=== PATIENT | female | born 1965 | race Hispanic/Latino ===

== ENCOUNTER 2017-02-20 18:00 | Emergency (ER) | payer BC ==
[2017-02-20 18:00] VITALS: BMI 25.8
[2017-02-20 18:22] VITALS: BP 138/95; PULSE 89; RESP 16; TEMP 97.1; O2SAT 100
--- NOTE | 2017-02-20 19:28 | ED PDOC ---
Lower Extremity Pain/Injury Time Seen by Provider: 02/20/17 18:30 Chief Complaint (Nursing): Lower Extremity Problem/Injury Chief Complaint (Provider): Right 4th toe pain, ecchymosis History Per: Patient History/Exam Limitations: no limitations Onset/Duration Of Symptoms: Days Current Symptoms Are (Timing): Still Present Severity: Mild Pain Scale Rating Of: 3 Additional Complaint(s): PT states she felt some pain and tingling in the 4th digit this morning. Pt states after work she felt mild pain and when she took off her shoe she noticed the medial seciton of the toe was bruised. Pt denies any recent trauma. Pt states she did do a good cleaning of the house yesterday. Past Medical History Reviewed: Historical Data, Nursing Documentation, Vital Signs Vital Signs: Last Vital Signs Temp 97.1 F L 02/20/17 18:18 Pulse 89 02/20/17 18:18 Resp 16 02/20/17 18:18 BP 138/95 H 02/20/17 18:18 Pulse Ox 100 02/20/17 18:18 - Medical History PMH: Hypothyroidism Denies: Depression - Surgical History Surgical History: No Surg Hx - Family History Family History: States: Unknown Family Hx - Living Arrangements Living Arrangements: With Family - Social History Current smoker - smoking cessation education provided: No Alcohol: None Drugs: Denies - Home Medications Home Medications: Ambulatory Orders Medication Instructions Recorded Azithromycin [Zithromax] 250 mg PO DAILY #6 cap 09/10/13 Levothyroxine Sodium 150 mcg PO DAILY 09/10/13 [Levothyroxine Sodium] - Allergies Allergies/Adverse Reactions: Allergies Allergy/AdvReac Type Severity Reaction Status Date / Time No Known Allergies Allergy Verified 02/20/17 18:18 Review of Systems ROS Statement: Except As Marked, All Systems Reviewed And Found Negative Musculoskeletal: Positive for: Other Skin: Positive for: Bruising (right 4th toe ) Physical Exam - Reviewed Nursing Documentation Reviewed: Yes Vital Signs Reviewed: Yes - Physical Exam Appears: Positive for: Well, Non-toxic, No Acute Distress Head Exam: Positive for: ATRAUMATIC, NORMAL INSPECTION, NORMOCEPHALIC Skin: Positive for: Warm. Negative for: Normal Color ((+) right 4th toe ecchymosis, medial ) Eye Exam: Positive for: Normal appearance ENT: Positive for: Normal ENT Inspection Neck: Positive for: Normal, Painless ROM Respiratory: Negative for: Accessory Muscle Use, Respiratory Distress Extremity: Positive for: Normal ROM, Tenderness (right proximal 4th digit ). Negative for: Deformity, Swelling Neurologic/Psych: Positive for: Alert, Oriented - ECG O2 Sat by Pulse Oximetry: 100 Medical Decision Making Medical Decision Making: Podiatry consult completed. Disposition - Clinical Impression Clinical Impression: Soft tissue injury - Patient ED Disposition Is Patient to be Admitted: No Counseled Patient/Family Regarding: Diagnosis, Need For Followup - Disposition Referrals: Jeremiah Castillo DPM [Staff Provider] - Podiatry Clinic [Outside] Disposition: Routine/Home Disposition Time: 22:42 Condition: GOOD Instructions: Contusion in Adults (ED)
--- NOTE | 2017-02-20 22:06 | CP.PCM.CON ---
History of Present Illness - History of Present Illness History of Present Illness: PODIATRY CONSULT NOTE: 52 yo female patient seen at the bedside in the ED following request for podiatry consult. Pt states that she felt a throbbing pain, tingling, and bruising to the right 4th toe this morning. Pt denies any recent trauma to the foot. Pt does say she may have stubbed the toe on the vacuum assembly cleaner yesterday while cleaning but says she does "not remember clearly". Says she is able to walk but with pain. Denies any other pedal problems. PMH: breast cancer, ovarian cancer, renal cancer, hypothyroid ALL: NKDA Meds: levothyroxine Surg Hx: double mastectomy, hysterectomy Review of Systems - Review of Systems Review of Systems: ROS as per HPI, all other systems reviewed and found to be negative - Constitutional Constitutional: As Per HPI Past Patient History - Infectious Disease Hx of Infectious Diseases: None - Past Social History Alcohol: None Drugs: Denies - ENDOCRINE/METABOLIC Hx Hypothyroidism: Yes - HEMATOLOGICAL/ONCOLOGICAL Hx Cancer: Yes (breast/kidney/ovarian) - PSYCHIATRIC Hx Depression: No - SURGICAL HISTORY Hx Hysterectomy: Yes (2008) Hx Mastectomy: Yes (double 2000) Meds Allergies/Adverse Reactions: Allergies Allergy/AdvReac Type Severity Reaction Status Date / Time No Known Allergies Allergy Verified 02/20/17 18:18 Physical Exam - Constitutional Appears: Well, Non-toxic, No Acute Distress - Extremities Exam Additional comments: Right foot focused: VASC- DP/PT pulse palpable (2/4), TG runs warm to cool, capillary refill <3 sec to digits x 5, non-pitting edema noted to dorsum of toe at level of MTPJ and running distally NEURO- gross pedal sensation intact DERM- + ecchymosis noted to dorsum of 4th digit from MTPJ running distally ORTHO- tenderness to palpation of 4th digit (dorsum), pain on MTPJ ROM, patient able to flex and extend all digits freely. - Neurological Exam Neurological exam: Alert, CN II-XII Intact, Oriented x3 - Psychiatric Exam Psychiatric exam: Normal Affect, Normal Mood Results - Vital Signs Recent Vital Signs: Last Vital Signs Temp 97.1 F L 02/20/17 18:18 Pulse 89 02/20/17 18:18 Resp 16 02/20/17 18:18 BP 138/95 H 02/20/17 18:18 Pulse Ox 100 02/20/17 19:30 Assessment & Plan - Assessment and Plan (Free Text) Assessment: 52 yo female patient with soft tissue contusion to right 4th digit secondary to pedal trauma Plan: Pt seen and evaluated at bedside Plan discussed in detail with attending Dr. Castillo Chart reviewed X-ray: no fractures or dislocations noted Pt questions answered to full satisfaction 4th digit juan splinted Surgical shoe dispensed and given to patient Pt may WB fully. Ice, elevate the foot Follow with Dr. Seymour in podiatry clinic 1 week
--- NOTE | 2017-02-21 14:55 | RAD ---
PROCEDURE: Right 4th digit dated 02/20/2017. HISTORY: pain, ecchymosis COMPARISON: No prior study available for comparison TECHNIQUE: PA and lateral views of the left 4th digit performed. FINDINGS: Distal phalanx left 5th digit partially overlaps the 4th digit reducing fine soft tissue and bone detail. No definitive radiographic evidence of acute displaced fracture nor dislocation. There appears to be fusion of the middle and distal phalanges 4th digit The osseous structures appear intact. . No cortical destructive changes so far as can be seen. Mild flexion deformities noted at the PIP joints There are no radiopaque foreign bodies. IMPRESSION: No definitive evidence of acute displaced fracture nor dislocation. Repeat radiographs 5-10 days could be performed if symptoms persist or occult fracture suspected clinically.
== END 2017-02-20 22:53 | disposition home or self-care (01) ==
LOC: H.ER 18:00
DX: T14.90 Injury, unspecified (principal); W22.8XXA Striking against or struck by other objects, initial encounter; Y92.89 Other specified places as the place of occurrence of the external cause